=== PATIENT | female | born 1960 | race Caucasian/White ===

== ENCOUNTER → 2018-12-31 | Outpatient (CLI) | payer OTHER ==
[~2018-12-31] MED LIST: CBD cream TP; CHOL5000 PO; LACT1CAP37 PO; LEVO50TA5 PO; MULT-658 PO; TRAZ50TA66 PO
[2018-12-31 16:52] LABS: BASOPHILS # (AUTO) 0.02 x10^3/uL (0-0.1); BASOPHILS % (AUTO) 0 % (0-1); EOSINOPHILS # (AUTO) 0.07 x10^3/uL (0-0.4); EOSINOPHILS % (AUTO) 1 % (1-7); LYMPHOCYTES # (AUTO) 1.42 x10^3/uL (1-3.4); LYMPHOCYTES % (AUTO) 19 % (22-44); MD NO; MEAN CORPUSCULAR HEMOGLOBIN 30.8 pg (27.0-34.8); MEAN CORPUSCULAR HGB CONC 34.5 g/dL (32.4-35.8); MEAN CORPUSCULAR VOLUME 89.5 fL (80-100); MEAN PLATELET VOLUME 9.1 fL (7.4-10.4); MONOCYTES # (AUTO) 0.58 x10^3/uL (0.2-0.8); MONOCYTES % (AUTO) 8 % (2-9); NEUTROPHILS # (AUTO) 5.35 x10^3/uL (1.8-6.8); NEUTROPHILS % (AUTO) 72 % (42-75); PLATELET COUNT 300 x10^3/uL (130-400); RED BLOOD COUNT 5.28 x10^6/uL (3.82-5.3)
[2018-12-31 17:01] LABS: ANION GAP 5 mmol/L (5-15); CALCIUM 9.5 mg/dL (8.5-10.1); CHLORIDE 105 mmol/L (98-107)
== END | disposition home or self-care (01) ==
LOC: STAR 15:40
PROVIDERS: ATTEND Orthopaedic Surgery
DX: M25.561 Pain in right knee (principal); Z96.651 Presence of right artificial knee joint
CPT/HCPCS: 36415; 80048; 85025; 87081; 87147; 93005

== ENCOUNTER 2019-01-12 06:44 | Observation (INO) | payer OTHER ==
[2018-12-31 16:12] VITALS: BP 132/83
[~2019-01-12] VITALS: Ht 157.5 cm; Wt 100.4 kg
[~2019-01-12 06:44] MED LIST changes: +EPINEPHRINE 1 MG/ML, 1ML ONE; +KETOROLAC 60 MG/2 ML ONE; +ROPIvacaine/PF 0.2%, 20 ML ONE; +SODIUM CHLORIDE 0.9% 50 ML ONE; +TRANEXAMIC ACID 100 MG/ML, 10ML ONE
[2019-01-12] MEDS ORDERED: LACTATED RINGERS 1,000 ML IV SCH (07:06)
[2019-01-12] MEDS ORDERED: ACETAMINOPHEN 500 MG TABLET PO ONE (07:30)
[2019-01-12] MEDS ORDERED: GABAPENTIN 300 MG CAPSULE PO ONE (07:30)
[2019-01-12] MEDS ORDERED: MIDAZOLAM 1 MG/ML, 2ML ONE ×2 (08:11→10:51)
[2019-01-12] MEDS ORDERED: FENTANYL PF 100 MCG/2ML ONE ×2 (08:11→10:50)
[2019-01-12] MEDS ORDERED: FENTANYL PF 250 MCG/5ML ONE (09:19)
[2019-01-12] MEDS ORDERED: BUPIVACAINE/PF 0.25% ONE (09:27)
[2019-01-12] MEDS ORDERED: hydrALAzine 20 MG/ML, 1ML ONE (09:27)
[2019-01-12] MEDS ORDERED: PROPOFOL 10 MG/ML, 20ML ONE (09:27)
[2019-01-12] MEDS ORDERED: DEXAMETHASONE 4 MG/ML, 1ML ONE (09:27)
[2019-01-12] MEDS ORDERED: LIDOCAINE-MPF 2% ,5ML ONE (09:27)
[2019-01-12] MEDS ORDERED: ONDANSETRON 2MG/ML, 2ML ONE (09:27)
[2019-01-12] MEDS ORDERED: CEFAZOLIN 1,000 MG ONE (09:27)
[2019-01-12] MEDS ORDERED: PROMETHAZINE 25 MG/ML, 1ML IV PRN (09:30)
[2019-01-12] MEDS ORDERED: ONDANSETRON 2MG/ML, 2ML IV PRN ×2 (09:30→11:00)
[2019-01-12] MEDS ORDERED: SCOPOLAMINE PATCH, 1.5MG PATCH.TD72 TD PRN (09:30)
[2019-01-12] MEDS ORDERED: ALBUTEROL/IPRATROPIUM 2.5MG/0.5MG, 3 ML NPPB PRN (09:30)
[2019-01-12] MEDS ORDERED: HYDROmorphone 2 MG/ML, 1ML IVPush PRN (09:30)
[2019-01-12] MEDS ORDERED: MIDAZOLAM 1 MG/ML, 2ML IV PRN (09:30)
[2019-01-12] MEDS ORDERED: MEPERIDINE/PF 25MG/0.5ML IVPush PRN (09:30)
[2019-01-12] MEDS ORDERED: OXYcodone 5 MG/5 ML ORAL.SOL UDC PO PRN (09:30)
[2019-01-12] MEDS ORDERED: hydrALAzine 20 MG/ML, 1ML IV PRN (09:30)
[2019-01-12] MEDS ORDERED: OXYcodone 5 MG/5 ML ORAL.SOL UDC ONE (10:51)
[2019-01-12] MEDS ORDERED: SCOPOLAMINE PATCH, 1.5MG PATCH.TD72 TD SCH (11:00)
[2019-01-12] MEDS ORDERED: MAGNESIUM HYDROXIDE 8%, 30ML UDC PO PRN (11:00)
[2019-01-12] MEDS: FENTANYL PF 100 MCG/2ML IV PRN ×2 (11:00→11:27)
[2019-01-12] MEDS ORDERED: BISACODYL 10 MG SUPP PR PRN (11:00)
[2019-01-12] MEDS ORDERED: SENNA/DOCUSATE TABLET PO PRN (11:00)
[2019-01-12] MEDS ORDERED: DIAZEPAM 5 MG TABLET PO PRN (11:00)
[2019-01-12] MEDS ORDERED: DIPHENHYDRAMINE 50 MG CAPSULE PO PRN (11:00)
[2019-01-12] MEDS ORDERED: DEXAMETHASONE 4 MG/ML, 1ML IVPush SCH (11:00)
[2019-01-12] MEDS ORDERED: TRANEXAMIC ACID 1,000 MG in SODIUM CHLORIDE 0.9% 100 ML IVPB ONE (11:00)
[2019-01-12] MEDS ORDERED: ZOLPIDEM 5MG TABLET PO PRN (11:00)
[2019-01-12] MEDS ORDERED: HYDROmorphone 1 MG/ML, 1ML INJ IVPush PRN (11:00)
[2019-01-12] MEDS ORDERED: PROMETHAZINE 25 MG/ML, 1ML IM PRN (11:00)
[2019-01-12] MEDS ORDERED: PROMETHAZINE 12.5 MG SUPP PR PRN (11:00)
[2019-01-12] MEDS ORDERED: ALUMINUM/MAG/SIMETHICONE 30 ML UDC PO PRN (11:00)
[2019-01-12 11:59] VITALS: BP 108/68
[2019-01-12 13:34] VITALS: BP 104/67
[2019-01-12] MEDS ORDERED: ACETAMINOPHEN 500 MG TABLET ONE (14:50)
[2019-01-12] MEDS: KETOROLAC 30 MG/1 ML IV SCH ×2 (14:53→20:46)
[2019-01-12] MEDS: CALCIUM/VITAMIN D3 250-125 TABLET PO SCH ×2 (14:53→16:45)
[2019-01-12] MEDS: SODIUM CHLORIDE 0.9% 1,000 ML IV SCH ×2 (14:53→23:00)
[2019-01-12] MEDS: ACETAMINOPHEN 325 MG TABLET PO SCH ×2 (14:55→20:46)
[2019-01-12] MEDS: CEFAZOLIN PMX 1GM/50ML 50 ML IVPB SCH (16:45)
[2019-01-12] MEDS: FERROUS SULFATE 325 MG TABLET PO SCH (17:50)
[2019-01-12] MEDS ORDERED: ASPIRIN 81 MG TABLET EC PO SCH (18:00)
[2019-01-12] MEDS: ONDANSETRON 4 MG TABLET PO PRN ×2 (18:51→18:52)
[2019-01-12 20:08] VITALS: BP 95/58
[2019-01-12] MEDS: DOCUSATE 100 MG CAPSULE PO SCH (20:45)
[2019-01-12] MEDS ORDERED: TRAZODONE 50MG TABLET PO SCH (21:00)
[2019-01-12] MEDS: OXYcodone IR 5MG TABLET PO PRN (23:19)
[2019-01-12 23:48] VITALS: BP 94/52
[2019-01-13] MEDS: CEFAZOLIN PMX 1GM/50ML 50 ML IVPB SCH (01:01)
[2019-01-13] MEDS: ACETAMINOPHEN 500 MG TABLET PO SCH ×2 (03:12→08:14)
[2019-01-13] MEDS: OXYcodone IR 5MG TABLET PO PRN (03:12)
[2019-01-13] MEDS: KETOROLAC 30 MG/1 ML IV SCH ×2 (03:12→08:14)
[2019-01-13 03:43] VITALS: BP 102/65
[2019-01-13] MEDS: SODIUM CHLORIDE 0.9% 1,000 ML IV SCH (06:14)
[2019-01-13] MEDS ORDERED: DEXAMETHASONE 4 MG/ML, 1ML IVPush ONE (07:00)
[2019-01-13 08:04] VITALS: BP 93/61
[2019-01-13] MEDS ORDERED: LEVOTHYROXINE 25 MCG TABLET ONE (08:08)
[2019-01-13] MEDS: FERROUS SULFATE 325 MG TABLET PO SCH ×2 (08:14→08:17)
[2019-01-13] MEDS: DOCUSATE 100 MG CAPSULE PO SCH (08:14)
[2019-01-13] MEDS: CALCIUM/VITAMIN D3 250-125 TABLET PO SCH (08:14)
[2019-01-13] MEDS ORDERED: ASCORBIC ACID 500 MG TABLET PO SCH (09:00)
[2019-01-13] MEDS ORDERED: LEVOTHYROXINE 50 MCG TABLET PO SCH (09:00)
[2019-01-13] MEDS ORDERED: MULTIVITAMINS/MINERALS TABLET PO SCH (09:00)
== END 2019-01-13 10:54 | disposition home or self-care (01) ==
LOC: OUT 06:44 → ORIP 10:32 → EDSTATUS 11:00 → 4NOR 11:55 → DCLOUNGE 01-13 10:39
PROVIDERS: ADMIT Orthopaedic Surgery; ATTEND Orthopaedic Surgery
DX: M17.11 Unilateral primary osteoarthritis, right knee (principal); Z88.5 Allergy status to narcotic agent; Z79.82 Long term (current) use of aspirin; Z79.899 Other long term (current) drug therapy
CPT/HCPCS: 27447; 36415; 73560; 85014; 85018; 96365; 96366; 96375; 96376; 97110; 97161; C1713; C1776; G0378; J0171; J0360; J0690; J1100; J1885; J2250; J2405; J2704; J2795; J3010; J3490; J7030; J7120; Q0162

== ENCOUNTER → 2019-11-16 | Outpatient (CLI) | payer OTHER ==
[~2019-11-16] MED LIST changes: -EPINEPHRINE 1 MG/ML, 1ML ONE; -KETOROLAC 60 MG/2 ML ONE; +NAPR-685 PO; -ROPIvacaine/PF 0.2%, 20 ML ONE; -SODIUM CHLORIDE 0.9% 50 ML ONE; -TRANEXAMIC ACID 100 MG/ML, 10ML ONE
[2019-11-16 09:19] LABS: ANION GAP 4 mmol/L (5-15); CALCIUM 8.9 mg/dL (8.5-10.1); CHLORIDE 110 mmol/L (98-107); CREATININE 0.99 mg/dL (0.55-1.02)
[2019-11-16 09:23] LABS: BASOPHILS # (AUTO) 0.04 x10^3/uL (0-0.1); BASOPHILS % (AUTO) 1 % (0-1); EOSINOPHILS # (AUTO) 0.09 x10^3/uL (0-0.4); EOSINOPHILS % (AUTO) 1 % (1-7); LYMPHOCYTES # (AUTO) 1.29 x10^3/uL (1-3.4); LYMPHOCYTES % (AUTO) 18 % (22-44); MD NO; MEAN CORPUSCULAR HEMOGLOBIN 30.6 pg (27.0-34.8); MEAN CORPUSCULAR HGB CONC 33.7 g/dL (32.4-35.8); MEAN CORPUSCULAR VOLUME 90.7 fL (80-100); MEAN PLATELET VOLUME 8.1 fL (7.4-10.4); MONOCYTES # (AUTO) 0.45 x10^3/uL (0.2-0.8); MONOCYTES % (AUTO) 6 % (2-9); NEUTROPHILS # (AUTO) 5.22 x10^3/uL (1.8-6.8); NEUTROPHILS % (AUTO) 74 % (42-75); PLATELET COUNT 314 x10^3/uL (130-400); RED BLOOD COUNT 5.17 x10^6/uL (3.82-5.3); RED CELL DISTRIBUTION WIDTH 14.4 % (9.6-15.2)
== END | disposition home or self-care (01) ==
LOC: STAR 08:16
PROVIDERS: ATTEND Orthopaedic Surgery
DX: Z01.818 Encounter for other preprocedural examination (principal); M17.12 Unilateral primary osteoarthritis, left knee; M25.562 Pain in left knee; M25.561 Pain in right knee; M17.9 Osteoarthritis of knee, unspecified; Z96.651 Presence of right artificial knee joint
CPT/HCPCS: 36415; 80048; 85025; 87081; 87147; 93005

== ENCOUNTER → 2020-10-03 | Outpatient (CLI) | payer OTHER | END | disposition home or self-care (01) | LOC: CFH 11:02 | PROVIDERS: ATTEND Internal Medicine Geriatric Medicine | DX: K90.0 Celiac disease (principal); N95.9 Unspecified menopausal and perimenopausal disorder | CPT/HCPCS: 77080 ==

== ENCOUNTER → 2021-01-26 | Outpatient (CLI) | payer OTHER ==
[~2021-01-26] MED LIST changes: +FLUO5DRO5 EACHEYE
[2021-01-26 12:11] LABS: ANION GAP 4 mmol/L (5-15); CALCIUM 9.5 mg/dL (8.5-10.1); CHLORIDE 103 mmol/L (98-107); CREATININE 0.91 mg/dL (0.55-1.02)
[2021-01-26 12:18] LABS: MICROSCOPIC AUTO
[2021-01-26 12:22] LABS: BASOPHILS % (AUTO) 1 % (0-1); EOSINOPHILS % (AUTO) 1 % (1-7); LYMPHOCYTES % (AUTO) 19 % (22-44); MEAN CORPUSCULAR HEMOGLOBIN 30.9 pg (27.0-34.8); MEAN CORPUSCULAR HGB CONC 34.7 g/dL (32.4-35.8); MEAN PLATELET VOLUME 8.7 fL (7.4-10.4); MONOCYTES % (AUTO) 8 % (2-9); NEUTROPHILS % (AUTO) 71 % (42-75); PLATELET COUNT 259 x10^3/uL (130-400); RED BLOOD COUNT 5.34 x10^6/uL (3.82-5.3); RED CELL DISTRIBUTION WIDTH 13.6 % (9.6-15.2)
[2021-01-26 12:23] LABS: MD NO
== END | disposition home or self-care (01) ==
LOC: STAR 10:29
PROVIDERS: ATTEND Orthopaedic Surgery
DX: Z01.810 Encounter for preprocedural cardiovascular examination (principal); Z01.818 Encounter for other preprocedural examination; M17.12 Unilateral primary osteoarthritis, left knee; M25.562 Pain in left knee; Z20.822 Contact with and (suspected) exposure to COVID-19
CPT/HCPCS: 36415; 80048; 81001; 85025; 87081; 87086; 93005; U0003; U0005

== ENCOUNTER 2021-02-01 05:34 | Observation (INO) | payer OTHER ==
[~2021-02-01] VITALS: Ht 157.5 cm; Wt 118.3 kg
[~2021-02-01 05:34] MED LIST changes: -LACT1CAP37 PO; +LACT1CAP47 PO
[2021-02-01 06:24] VITALS: BP 136/79
[2021-02-01] MEDS ORDERED: LACTATED RINGERS 1,000 ML IV SCH (06:30)
[2021-02-01] MEDS ORDERED: CHLORHEXIDINE 15 ML UDC PO ONE (06:30)
[2021-02-01] MEDS ORDERED: FENTANYL PF 250 MCG/5ML ONE (06:45)
[2021-02-01] MEDS ORDERED: MIDAZOLAM 1 MG/ML, 2ML ONE (06:45)
[2021-02-01] MEDS ORDERED: VANCOMYCIN 1,000 MG ONE (06:51)
[2021-02-01] MEDS ORDERED: TRANEXAMIC ACID 100 MG/ML, 10ML ONE ×2 (06:51)
[2021-02-01] MEDS ORDERED: SODIUM CHLORIDE 0.9% 50 ML ONE (06:51)
[2021-02-01] MEDS ORDERED: KETOROLAC 60 MG/2 ML ONE (06:51)
[2021-02-01] MEDS ORDERED: ROPIvacaine/PF 0.2%, 20 ML ONE (06:51)
[2021-02-01] MEDS ORDERED: ACETAMINOPHEN 500 MG TABLET PO ONE (07:00)
[2021-02-01] MEDS ORDERED: GABAPENTIN 300 MG CAPSULE PO ONE (07:00)
[2021-02-01] MEDS ORDERED: GABAPENTIN 300 MG CAPSULE ONE (07:03)
[2021-02-01] MEDS ORDERED: ONDANSETRON 2MG/ML, 2ML ONE (07:15)
[2021-02-01] MEDS ORDERED: CEFAZOLIN 1,000 MG ONE (07:15)
[2021-02-01] MEDS ORDERED: OXYcodone 5 MG/5 ML ORAL.SOL UDC PO PRN ×2 (07:30→10:00)
[2021-02-01] MEDS ORDERED: OXYcodone/APAP 5/325MG TABLET PO PRN (07:30)
[2021-02-01] MEDS ORDERED: ONDANSETRON 4 MG TABLET PO PRN (07:30)
[2021-02-01] MEDS: CEFAZOLIN PMX 1GM/50ML 50 ML IVPB SCH ×3 (07:30→16:40)
[2021-02-01] MEDS ORDERED: DEXAMETHASONE 4 MG/ML, 1ML ONE (07:30)
[2021-02-01] MEDS ORDERED: DIAZEPAM 5 MG TABLET PO PRN (07:30)
[2021-02-01] MEDS ORDERED: ONDANSETRON 2MG/ML, 2ML IVPush PRN ×2 (07:30→10:00)
[2021-02-01] MEDS ORDERED: PROMETHAZINE 12.5 MG SUPP PR PRN ×2 (07:30→10:00)
[2021-02-01] MEDS ORDERED: PROPOFOL 10 MG/ML, 20ML ONE (07:33)
[2021-02-01] MEDS ORDERED: ROCURONIUM 10MG/ML,5ML ONE (07:33)
[2021-02-01] MEDS ORDERED: SUCCINYLCHOLINE 20 MG/ML, 10ML ONE (07:33)
[2021-02-01] MEDS ORDERED: FENTANYL PF 100 MCG/2ML ONE ×3 (08:13→10:14)
[2021-02-01] MEDS ORDERED: hydrALAzine 20 MG/ML, 1ML ONE (08:14)
[2021-02-01] MEDS ORDERED: TRANEXAMIC ACID 1,000 MG in SODIUM CHLORIDE 0.9% 100 ML IVPB ONE (09:31)
[2021-02-01] MEDS: FENTANYL PF 100 MCG/2ML IV PRN ×3 (09:35→10:20)
[2021-02-01] MEDS ORDERED: OXYcodone 5 MG/5 ML ORAL.SOL UDC ONE ×2 (09:42)
[2021-02-01] MEDS ORDERED: ALBUTEROL SULFATE 2.5 MG/3 ML NPPB PRN (10:00)
[2021-02-01] MEDS ORDERED: EPHEDRINE 50 MG/ML, 1ML IVPush PRN (10:00)
[2021-02-01] MEDS ORDERED: MIDAZOLAM 1 MG/ML, 2ML IV PRN (10:00)
[2021-02-01] MEDS ORDERED: PROMETHAZINE 25 MG/ML, 1ML IVPush PRN (10:00)
[2021-02-01] MEDS ORDERED: hydrALAzine 20 MG/ML, 1ML IV PRN (10:00)
[2021-02-01] MEDS ORDERED: DIPHENHYDRAMINE 50 MG/ML, 1ML IVPush PRN ×2 (10:00)
[2021-02-01] MEDS ORDERED: DIAZEPAM 5 MG/ML, 2ML IVPush PRN (10:00)
[2021-02-01] MEDS ORDERED: HYDROmorphone 1 MG/ML, 1ML INJ IVPush PRN (10:00)
[2021-02-01] MEDS ORDERED: MEPERIDINE/PF 25MG/0.5ML IVPush PRN (10:00)
[2021-02-01] MEDS ORDERED: LABETALOL 5MG/ML, 20ML IV PRN (10:00)
[2021-02-01 11:00] VITALS: BP 115/63
[2021-02-01 12:05] VITALS: BP 110/71
[2021-02-01] MEDS: FLUOROMETHOLONE EACHEYE SCH ×3 (12:51→22:37)
[2021-02-01] MEDS: LEVOTHYROXINE 75 MCG TABLET PO SCH (12:52)
[2021-02-01] MEDS: DOCUSATE 100 MG CAPSULE PO SCH ×2 (14:06→22:37)
[2021-02-01] MEDS: ACETAMINOPHEN 500 MG TABLET PO SCH (16:40)
[2021-02-01 19:53] VITALS: BP 121/74
[2021-02-01] MEDS ORDERED: TRAZODONE 50MG TABLET PO SCH (21:00)
[2021-02-02] MEDS: ACETAMINOPHEN 500 MG TABLET PO SCH ×2 (00:32→08:15)
[2021-02-02] MEDS: CEFAZOLIN PMX 1GM/50ML 50 ML IVPB SCH (00:32)
[2021-02-02 00:34] VITALS: BP 112/71
[2021-02-02 03:24] VITALS: BP 101/63
[2021-02-02] MEDS: FLUOROMETHOLONE EACHEYE SCH (06:00)
[2021-02-02] MEDS ORDERED: DEXAMETHASONE 4 MG/ML, 1ML IVPush ONE (06:00)
[2021-02-02] MEDS ORDERED: ASPIRIN 81 MG TABLET EC PO SCH ×2 (06:00→18:00)
[2021-02-02] MEDS: DOCUSATE 100 MG CAPSULE PO SCH (08:15)
[2021-02-02] MEDS: LEVOTHYROXINE 75 MCG TABLET PO SCH (08:15)
[2021-02-02 08:40] VITALS: BP 138/91
[2021-02-02] MEDS ORDERED: NAPR-856 PO (09:35)
== END 2021-02-02 10:45 | disposition home or self-care (01) ==
LOC: OUT 05:34 → ORIP 07:28 → INTOOBSV 07:28 → 4NE 10:50 → DCLOUNGE 02-02 10:36
PROVIDERS: ADMIT Orthopaedic Surgery; ATTEND Orthopaedic Surgery
DX: M17.12 Unilateral primary osteoarthritis, left knee (principal); E43 Unspecified severe protein-calorie malnutrition; E66.01 Morbid (severe) obesity due to excess calories; E03.9 Hypothyroidism, unspecified; Z96.652 Presence of left artificial knee joint; Z79.899 Other long term (current) drug therapy
CPT/HCPCS: 27447; 73560; 96365; 96366; 96375; 97110; 97116; 97162; 97530; C1713; C1776; G0378; J0330; J0360; J0690; J1100; J1885; J2250; J2405; J2704; J2795; J3010; J7120; Q0162; J3370